=== PATIENT | female | born 1970 | race Caucasian/White ===

== ENCOUNTER → 2017-12-24 | Day surgery (SDC) | payer OTHER ==
[~2017-12-24] MED LIST: 0.9% SODIUM CHLORIDE 10 ML SYRINGE IVP PRN; ASPI81 PO; ATOR10TA84 PO; FENO160 PO; FERR-82 PO; GLIP5 PO; INSLAN SQ; INSU100V SQ; LISI1TAB11 PO; METF500T6 PO; METO25XL PO; METOPROLOL TARTRATE 50 MG TABLET PO PRN; OMEG-135 PO; OMEP20 PO
== END | disposition home or self-care (01) ==
LOC: SURGERY 08:30 → EDSTATUS 10:30
PROVIDERS: ATTEND Internal Medicine Cardiovascular Disease
DX: R94.39 Abnormal result of other cardiovascular function study (principal); Z53.8 Procedure and treatment not carried out for other reasons; I20.8 Other forms of angina pectoris; I11.9 Hypertensive heart disease without heart failure; E78.5 Hyperlipidemia, unspecified; E78.00 Pure hypercholesterolemia, unspecified; E11.9 Type 2 diabetes mellitus without complications; Z88.5 Allergy status to narcotic agent; Z79.82 Long term (current) use of aspirin; Z79.4 Long term (current) use of insulin; Z79.84 Long term (current) use of oral hypoglycemic drugs; Z87.891 Personal history of nicotine dependence; Z87.442 Personal history of urinary calculi; Z98.890 Other specified postprocedural states; Z79.899 Other long term (current) drug therapy
CPT/HCPCS: 93005

== ENCOUNTER 2018-01-02 08:26 | Day surgery (SDC) | payer OTHER ==
[~2018-01-02] VITALS: Ht 170.2 cm; Wt 86.4 kg
[~2018-01-02 08:26] MED LIST changes: -0.9% SODIUM CHLORIDE 10 ML SYRINGE IVP PRN; -METOPROLOL TARTRATE 50 MG TABLET PO PRN
[2018-01-02] MEDS ORDERED: SODIUM CHLORIDE 0.9% 1,000 ML IV ONE (09:00)
[2018-01-02] MEDS ORDERED: 0.9% SODIUM CHLORIDE 10 ML SYRINGE IVP ONE (09:00)
[2018-01-02 09:30] LABS: ANION GAP 8 mmol/L (8-16); CALCIUM, TOTAL 10.5 mg/dL (8.8-10.5); CARBON DIOXIDE 27 mmol/L (22-29); CHLORIDE 102 mmol/L (98-107); CREATININE 0.94 mg/dL (0.60-1.30); GLOMERULAR FILTR. RATE CALC > 60 mL/min (>60); GLUCOSE,RANDOM 201 mg/dL (70-110); POTASSIUM 4.1 mmol/L (3.5-5.1); SODIUM SERUM 137 mmol/L (136-145); UREA NITROGEN, BLOOD 12 mg/dL (7-18)
[2018-01-02] MEDS ORDERED: SODIUM CHLORIDE 0.9% 100 ML ONE (10:09)
[2018-01-02] MEDS ORDERED: IOVERSOL 350 MG/ML 150 ML VIAL ONE (10:09)
[2018-01-02] MEDS ORDERED: METOPROLOL TARTRATE 5 MG/5 ML VIAL ONE (10:56)
[2018-01-02] MEDS ORDERED: NITROGLYCERIN 400 MCG/SUBLINGUAL SPRAY 4.9 GM BOTTLE SL ONE ×2 (10:56→11:15)
== END 2018-01-02 11:45 | disposition home or self-care (01) ==
LOC: SDS 08:26
PROVIDERS: ATTEND Internal Medicine Cardiovascular Disease
DX: I20.8 Other forms of angina pectoris (principal); I11.9 Hypertensive heart disease without heart failure; E11.9 Type 2 diabetes mellitus without complications; E78.5 Hyperlipidemia, unspecified; I49.3 Ventricular premature depolarization; E78.00 Pure hypercholesterolemia, unspecified; Z72.89 Other problems related to lifestyle; Z79.4 Long term (current) use of insulin; Z88.5 Allergy status to narcotic agent; Z79.82 Long term (current) use of aspirin; Z79.84 Long term (current) use of oral hypoglycemic drugs; Z87.891 Personal history of nicotine dependence; Z87.442 Personal history of urinary calculi; Z98.890 Other specified postprocedural states; Z79.899 Other long term (current) drug therapy
CPT/HCPCS: 36415; 75574; 80048; 84703; 93005; J7050; Q9967; J3490